=== PATIENT | male | born 1980 | race Caucasian/White ===

== ENCOUNTER → 2023-09-03 09:55 | Outpatient (CLI) | payer OTHER, SELFPAY ==
--- NOTE | ~2023-09-03 | XR_ITS ---
XR abdomen/kub 1V 09/03/2023 10:15 Indication: Left ureteral stone Procedure: KUB Comparison: No prior studies for comparison. Findings: There are bilateral renal stones. There is calcification in the left pelvis, suspicious for ureteral stone. Bowel gas pattern nonobstructive with moderate colonic fecal loading. Impression: 1: Bilateral nephrolithiasis. Possible distal left ureteral stone. Consider correlation with CT. Reviewed, dictated and finalized at location B. Impression: 1: Bilateral nephrolithiasis. Possible distal left ureteral stone. Consider cor relation with CT.
== END ==
PROVIDERS: PCP Urology; Visit Provider Urology
DX: N20.1 Calculus of ureter (principal)
CPT/HCPCS: 74018